=== PATIENT | male | born 1995 | race Caucasian/White ===

== ENCOUNTER 2016-05-27 11:13 | Emergency (ER) | payer SELFPAY ==
[~2016-05-27] VITALS: Ht 172.7 cm; Wt 80.0 kg
[2016-05-27 11:16] VITALS: BP 116/56; PULSE 90; RESP 18; TEMP 98.4; O2SAT 96
[2016-05-27] MEDS ORDERED: predniSONE 50 MG TAB PO ONE (11:30)
[2016-05-27] MEDS ORDERED: RESP: ALBUTEROL 2.5 MG/IPRATROPIUM 0.5 MG NEB (SCH) NEB ONE (11:30)
[2016-05-27] MEDS ORDERED: ALBUAER3 INH (11:31)
[2016-05-27] MEDS ORDERED: PRED20 PO (11:31)
--- NOTE | 2016-05-27 11:31 | PD ---
HPI Chief Complaint: sob Time Seen by Provider: 11:22 Travel History International Travel<30 days: No Contact w/Intl Traveler<30days: No History of Present Illness HPI This is a 20-year-old male with a history of asthma who presents to the emergency department with 3 days of productive cough with some green sputum today, wheezing, subjective fevers and some rhinorrhea. His symptoms of been constant and worsening. He feels like he's having trouble breathing. He doesn' t have any evidence asthma medications at school. He says he was hospitalized frequently as a child for his asthma. [facility] Past Medical History Narrative Medical asthma Social History Alcohol Use: Yes (socially) Tobacco Use: No Allergies-Medications (Allergen,Severity, Reaction): Coded Allergies: Crab (Verified Allergy, Unknown, 05/27/16) Lobster (Verified Allergy, Unknown, 05/27/16) Shrimp (Verified Allergy, Unknown, 05/27/16) Review of Systems Except as stated in HPI: all other systems reviewed are Neg Physical Exam Narrative GENERAL:Well appearing, no acute distress SKIN: Warm and dry. HEAD: Atraumatic. Normocephalic. EYES: Pupils equal and round. No injection or drainage. ENT: Moist mucous membranes NECK: Trachea midline. CARDIOVASCULAR: Regular rate and rhythm. No murmur appreciated. RESPIRATORY: Mild expiratory wheezing, speaking full sentences, resting comfortably GASTROINTESTINAL: Abdomen soft, non-tender, nondistended. MUSCULOSKELETAL: No obvious deformities. NEUROLOGICAL: Awake and alert. No obvious cranial nerve deficits. Moving all extremities. PSYCHIATRIC: Appropriate mood and affect; insight and judgment normal. Data Data Last Documented VS Vital Signs Date Time Temp Pulse Resp B/P Pulse Ox O2 Delivery O2 Flow Rate FiO2 05/27/16 11:16 98.4 90 18 116/56 96 Room Air Orders Albuterol-Ipratropium Neb (Duoneb Neb) (05/27/16 11:30) Prednisone (Deltasone) (05/27/16 11:30) MDM Medical Decision Making Medical Screen Exam Complete: Yes Emergency Medical Condition: Yes Interpretation(s) Afebrile, no hypoxia Differential Diagnosis Viral upper respiratory infection, acute asthma exacerbation, influenza, pneumonia Narrative Course This is a 20-year-old male who presents to the emergency department with increasing wheezing, cough and rhinorrhea. I suspect he has an acute asthma exacerbation in the setting of a viral upper respiratory infection. His vital signs are reassuring. He was given 1 DuoNeb in the emergency department and will be discharged with prednisone and albuterol. Diagnosis Primary Impression: Asthma exacerbation Med/Other Pt SpecificInfo: Prescription(s) given Scripts Albuterol 8.5 GM Inh (Proair Hfa 8.5 GM Inh)90 Mcg/Act Aer2 Puff INH Q4-6H PRN ( SHORTNESS OF BREATH) #1 INHALER Ref 0 108 mcg/actuation Prov:Minda Tompkins MD 05/27/16 Prednisone 20 Mg Tab40 Mg PO DAILY 4 Days Prov:Minda Tompkins MD 05/27/16 Disposition: 01 DISCHARGE HOME Condition: Stable Minda Tompkins MD May 27, 2016 11:31
[2016-05-27] MEDS ORDERED: ALBU.5I NEB (12:46)
--- NOTE | 2016-05-27 12:47 | PD ---
Data Data Last Documented VS Vital Signs Date Time Temp Pulse Resp B/P Pulse Ox O2 Delivery O2 Flow Rate FiO2 05/27/16 11:31 Room Air 05/27/16 11:16 98.4 90 18 116/56 96 Orders Albuterol-Ipratropium Neb (Duoneb Neb) (05/27/16 11:30) Prednisone (Deltasone) (05/27/16 11:30) MDM Supervised Visit with RENEE: No Narrative Course Patient requested nebulizer cartridges as he has a nebulizer machine at home. Diagnosis Primary Impression: Asthma exacerbation Patient Instructions: General Instructions Departure Forms: School Release, Return to School Date: May 28, 2016 Tests/Procedures Scripts Albuterol Neb 2.5 Mg/0.5 Ml Neb2.5 Mg NEB QID NEB PRN (WHEEZING) #120 NEBULE Ref 0 Note: The Albuterol Sulfate Inhalation Solution is concentrated and must be diluted. Read complete instructions carefully before using. Prov:Minda Tompkins MD 05/27/16 Albuterol 8.5 GM Inh (Proair Hfa 8.5 GM Inh)90 Mcg/Act Aer2 Puff INH Q4-6H PRN ( SHORTNESS OF BREATH) #1 INHALER Ref 0 108 mcg/actuation Prov:Minda Tompkins MD 05/27/16 Prednisone 20 Mg Tab40 Mg PO DAILY 4 Days Prov:Minda Tompkins MD 05/27/16 Disposition: 01 DISCHARGE HOME Condition: Stable Minda Tompkins MD May 27, 2016 12:47
== END 2016-05-27 12:54 | disposition home or self-care (01) ==
LOC: NEPA 11:13
DX: J45.901 Unspecified asthma with (acute) exacerbation (principal); J06.9 Acute upper respiratory infection, unspecified; R09.3 Abnormal sputum; Z87.09 Personal history of other diseases of the respiratory system
CPT/HCPCS: 94664; 99283; J7512

== ENCOUNTER 2017-04-30 02:54 | Emergency (ER) | payer SELFPAY ==
[~2017-04-30] VITALS: Ht 175.3 cm; Wt 82.0 kg
[~2017-04-30 02:54] MED LIST: ALBU.5I NEB; ALBUAER3 INH; PRED20 PO
[2017-04-30 02:57] VITALS: BP 139/78; PULSE 96; RESP 16; TEMP 98; O2SAT 98
[2017-04-30 03:34] VITALS: O2SAT 98
[2017-04-30 03:47] VITALS: BP 99/58; PULSE 68; RESP 14
[2017-04-30 03:47] LABS: AUTOMATED NEUTROPHIL # 5.4 TH/MM3 (1.8-7.7); BASOPHIL % 0.5 % (0.0-2.0); EOSINOPHIL # 0.2 TH/MM3 (0-0.4); EOSINOPHIL % 2.1 % (0.0-4.0); HEMATOCRIT 42.9 % (39.0-51.0); HEMOGLOBIN 14.6 GM/DL (13.0-17.0); LYMPH % 21.8 % (9.0-44.0); LYMPHOCYTE # 1.7 TH/MM3 (1.0-4.8); MEAN CELL VOLUME 87.1 FL (80.0-100.0); MEAN CORPUSCULAR HEMOGLOBIN 29.7 PG (27.0-34.0); MEAN CORPUSCULAR HGB CONC 34.1 % (32.0-36.0); MEAN PLATELET VOLUME 9.2 FL (7.0-11.0); MONO % 6.8 % (0.0-8.0); MONOCYTE # 0.5 TH/MM3 (0-0.9); NEUT % 68.8 % (16.0-70.0); PLATELET COUNT 198 TH/MM3 (150-450); RED BLOOD COUNT 4.92 MIL/MM3 (4.50-5.90); RED CELL DISTRIBUTION WIDTH 13.4 % (11.6-17.2); WHITE BLOOD COUNT 7.9 TH/MM3 (4.0-11.0)
[2017-04-30 04:08] LABS: ACETAMINOPHEN LESS THAN 2.0 MCG/ML (10.0-30.0); ALKALINE PHOSPHATASE 91 U/L (45-117); TOTAL BILIRUBIN ADULT 0.2 MG/DL (0.2-1.0); TOTAL PROTEIN 7.1 GM/DL (6.4-8.2)
[2017-04-30 04:44] LABS: ALBUMIN 3.6 GM/DL (3.4-5.0); ALT (GPT) 44 U/L (12-78); AST (GOT) 33 U/L (15-37); BICARBONATE 25.1 MEQ/L (21.0-32.0); BLOOD UREA NITROGEN 16 MG/DL (7-18); CALCIUM 8.8 MG/DL (8.5-10.1); CHLORIDE 105 MEQ/L (98-107); GLOMERULAR FILTRATION RATE 68 ML/MIN (>89); GLUCOSE,RANDOM 95 MG/DL (74-106); SODIUM (NA) 137 MEQ/L (136-145)
--- NOTE | 2017-04-30 04:54 | PD ---
HPI Chief Complaint: OD/ Ingestion Time Seen by Provider: 03:12 Travel History International Travel<30 days: No Contact w/Intl Traveler<30days: No Traveled to known affect area: No History of Present Illness HPI Patient is 21 and has a scratch on his right hand. He took about 6 tablets of Augmentin thinking it might help with pain however denies any intention of self- harm. He has 3 friends with him in all of them attested to the accidental nature of the ingestion. PFSH Past Medical History Asthma: Yes (As a child, since resolved) Immunizations Current: Yes Tetanus Vaccination: Unknown Influenza Vaccination: No Social History Alcohol Use: Yes (socially) Tobacco Use: No Substance Use: No Allergies-Medications (Allergen,Severity, Reaction): Coded Allergies: crab (Unverified Allergy, Unknown, 04/30/17) shellfish derived (Unverified Allergy, Unknown, 04/30/17) shrimp (Unverified Allergy, Unknown, 04/30/17) Reported Meds & Prescriptions Reported Meds & Active Scripts Active Albuterol Neb (Albuterol Sulfate) 2.5 Mg/0.5 Ml Neb 2.5 Mg NEB QID NEB PRN Note: The Albuterol Sulfate Inhalation Solution is concentrated and must be diluted. Read complete instructions carefully before using. Proair Hfa 8.5 GM Inh (Albuterol Sulfate) 90 Mcg/Act Aer 2 Puff INH Q4-6H PRN 108 mcg/actuation Prednisone 20 Mg Tab 40 Mg PO DAILY 4 Days Review of Systems Except as stated in HPI: all other systems reviewed are Neg Physical Exam Narrative GENERAL: 21-year-old male pleasant well-nourished. No acute distress Vital Signs Date Time Temp Pulse Resp B/P (MAP) Pulse Ox O2 Delivery O2 Flow Rate FiO2 04/30/17 05:00 04/30/17 03:47 68 14 99/58 (72) 04/30/17 03:34 98 Room Air 04/30/17 02:57 98.0 96 16 139/78 (98) 98 SKIN: Warm and dry. 1 mm x 1 cm abrasion overlying the fourth metacarpal. HEAD: Atraumatic. Normocephalic. EYES: Pupils equal and round. No scleral icterus. No injection or drainage. ENT: No nasal bleeding or discharge. Mucous membranes pink and moist. NECK: Trachea midline. No JVD. CARDIOVASCULAR: Regular rate and rhythm. RESPIRATORY: No accessory muscle use. Clear to auscultation. Breath sounds equal bilaterally. GASTROINTESTINAL: Abdomen soft, non-tender, nondistended. Hepatic and splenic margins not palpable. MUSCULOSKELETAL: Extremities without clubbing, cyanosis, or edema. No obvious deformities. NEUROLOGICAL: Awake and alert. No obvious cranial nerve deficits. Motor grossly within normal limits. Five out of 5 muscle strength in the arms and legs. Normal speech. PSYCHIATRIC: Appropriate mood and affect; insight and judgment normal. Data Data Last Documented VS Vital Signs Date Time Temp Pulse Resp B/P (MAP) Pulse Ox O2 Delivery O2 Flow Rate FiO2 04/30/17 05:00 04/30/17 03:47 68 14 04/30/17 03:34 98 Room Air 04/30/17 02:57 98.0 Orders Orders Complete Blood Count With Diff (04/30/17 03:14) Comprehensive Metabolic Panel (04/30/17 03:14) Iv Access Insert/Monitor (04/30/17 03:14) Ecg Monitoring (04/30/17 03:14) Oximetry (04/30/17 03:14) Drug Screen, Random Urine (04/30/17 03:14) Salicylates (Aspirin) (04/30/17 03:14) Tylenol (Acetaminophen) (04/30/17 03:14) Ed Discharge Order (04/30/17 04:54) Labs Laboratory Tests Test 04/30/17 03:30 White Blood Count 7.9 TH/MM3 Red Blood Count 4.92 MIL/MM3 Hemoglobin 14.6 GM/DL Hematocrit 42.9 % Mean Corpuscular Volume 87.1 FL Mean Corpuscular Hemoglobin 29.7 PG Mean Corpuscular Hemoglobin Concent 34.1 % Red Cell Distribution Width 13.4 % Platelet Count 198 TH/MM3 Mean Platelet Volume 9.2 FL Neutrophils (%) (Auto) 68.8 % Lymphocytes (%) (Auto) 21.8 % Monocytes (%) (Auto) 6.8 % Eosinophils (%) (Auto) 2.1 % Basophils (%) (Auto) 0.5 % Neutrophils # (Auto) 5.4 TH/MM3 Lymphocytes # (Auto) 1.7 TH/MM3 Monocytes # (Auto) 0.5 TH/MM3 Eosinophils # (Auto) 0.2 TH/MM3 Basophils # (Auto) 0.0 TH/MM3 CBC Comment DIFF FINAL Differential Comment Blood Urea Nitrogen 16 MG/DL Creatinine 1.30 MG/DL Random Glucose 95 MG/DL Total Protein 7.1 GM/DL Albumin 3.6 GM/DL Calcium Level 8.8 MG/DL Alkaline Phosphatase 91 U/L Aspartate Amino Transf (AST/SGOT) 33 U/L Alanine Aminotransferase (ALT/SGPT) 44 U/L Total Bilirubin 0.2 MG/DL Sodium Level 137 MEQ/L Potassium Level 3.8 MEQ/L Chloride Level 105 MEQ/L Carbon Dioxide Level 25.1 MEQ/L Anion Gap 7 MEQ/L Estimat Glomerular Filtration Rate 68 ML/MIN Salicylates Level LESS THAN 1.7 MG/DL Urine Opiates Screen NEG Acetaminophen Level LESS THAN 2.0 MCG/ML Urine Barbiturates Screen NEG Urine Amphetamines Screen NEG Urine Benzodiazepines Screen NEG Urine Cocaine Screen NEG Urine Cannabinoids Screen NEG MDM Medical Decision Making Medical Screen Exam Complete: Yes Emergency Medical Condition: Yes Medical Record Reviewed: Yes Differential Diagnosis Cellulitis, Augmentin overdose, abrasion, fight bite Narrative Course CBC & BMP Diagram 04/30/17 03:30 Total Protein 7.1, Albumin 3.6, Calcium Level 8.8, Alkaline Phosphatase 91, Aspartate Amino Transf (AST/SGOT) 33, Alanine Aminotransferase (ALT/SGPT) 44, Total Bilirubin 0.2 Patient counseled about pain control and using medications appropriately. Pt verbalized understanding. Patient is medically stable for discharge. Diagnosis Primary Impression: Antibiotic overdose Qualified Codes: T36.91XA - Poisoning by unspecified systemic antibiotic, accidental (unintentional), initial encounter Med/Other Pt SpecificInfo: No Change to Meds Disposition: 01 DISCHARGE HOME Condition: Stable Christoph Yanes MD Apr 30, 2017 04:53
== END 2017-04-30 05:02 | disposition home or self-care (01) ==
LOC: NEPE 02:54
DX: T36.0X1A Poisoning by penicillins, accidental (unintentional), initial encounter (principal); Z79.51 Long term (current) use of inhaled steroids; Z79.899 Other long term (current) drug therapy
CPT/HCPCS: 80053; 80307; 85025; 99283